=== PATIENT | male | born 1975 | race Caucasian/White ===

== ENCOUNTER 2017-03-04 22:51 | Emergency (ER) | payer OTHER ==
[2017-03-04 22:57] VITALS: RESP 16; TEMP 98.1
--- NOTE | 2017-03-04 23:05 | CPEKG ---
Heart Rate: 74 RR Interval: 811 P-R Interval: 192 QRSD Interval: 82 QT Interval: 384 QTC Interval: 426 P Emerson: 22 QRS Emerson: 19 T Wave Emerson: 40 EKG Severity - NORMAL ECG - EKG Impression: SINUS RHYTHM Electronically Signed By: Dmitri Faulkner 05-Mar-2017 07:19:49
[2017-03-04 23:25] LABS: % IMMATURE GRANULYOCYTES 0.2 % (0.0-1.1); ABSOLUTE IMMATURE GRANULOCYTES 0.02 10^3/uL (0.00-0.10); ADD DIFF? NO; ADD MORPH? NO; ADD SCAN? NO; ATYPICAL LYMPHOCYTE FLAG 0 (0-99); FRAGMENT RBC FLAG 0 (0-99); HEMATOCRIT 46.3 % (40.0-51.0); HEMOGLOBIN 16.7 g/dL (13.7-17.5); LEFT SHIFT FLG 0 (0-99); LIPEMIA HEMOLYSIS FLAG 90 (0-99); MEAN CELL HEMOGLOBIN 30.3 pg (27.9-34.1); MEAN CELL HEMOGLOBIN CONCENTR. 36.1 g/dL (32.4-36.7); MEAN CELL VOLUME 83.9 fL (81.5-99.8); MEAN PLATELET VOLUME 9.1 fL (8.7-11.7); PLATELET CLUMPS FLAG 0 (0-99); PLATELET COUNT 264 10^3/uL (150-400); RED BLOOD CELL COUNT 5.52 10^6/uL (4.40-6.38); RED CELL DISTRIBUTION WIDTH 11.6 % (11.5-15.2)
[2017-03-04 23:31] LABS: ANION GAP 12 mEq/L (8-16); CALCIUM 9.7 mg/dL (8.5-10.4); CARBON DIOXIDE 24 mEq/l (22-31); CHLORIDE 101 mEq/L (97-110); GLOMERULAR FILTRATION RATE > 60; GLUCOSE 139 mg/dL (70-100); POTASSIUM 4.1 mEq/L (3.5-5.2); SODIUM 137 mEq/L (134-144)
[2017-03-04 23:43] LABS: TROPONIN I < 0.012 ng/mL (0.000-0.034)
--- NOTE | 2017-03-05 00:09 | EDPHY ---
H & P Stated Complaint: Chest tightness and dizziness started 1700 Time Seen by Provider: 03/04/17 23:00 HPI/ROS: Chief Complaint: Chest tightness HPI: 42-year-old male was cooking dinner at 5 o'clock tonight when he felt a fluttering and some disease in his chest. He had short episodes lasting a seconds 4-4 times over the next hour and half. Then at 8 o'clock she will be he had central tightness in his chest with some fluttering in his upper abdomen. This lasted about 0.5 hr. He had some mild discomfort left side of his neck and the back of his arms. At worst is a 2/10. He has some intermittent moments of shortness of breath but were not persistent. Right now he is without complaint. He had a cold last week but has been well for the last 5-6 days. Does not have a history of similar episodes in the past. Does not smoke. Does not have a history of coronary artery disease. ROS: 10 point Review of Systems is negative except as noted in the HPI. PMH: Anxiety Social History: Past smoker, quit 3-4 years ago, no alcohol, no recreational drug use Family History: Both parents had breast cancer, no history of coronary artery disease stroke or diabetes Physical Exam: Gen: Awake, Alert, No Distress HEENT: Nose: no rhinorrhea Eyes: PERRLA, EOMI Mouth: Moist mucosa Neck: Supple, no JVD Chest: nontender, lungs clear to auscultation Heart: S1, S2 normal, no murmur Abd: Soft, non-tender, no guarding Back: no CVA tenderness, no midline tenderness Ext: no edema, non-tender Skin: no rash Neuro: CN II-XII intact, Sensation grossly intact, Strength 5/5 in bilateral upper and lower extremities - Personal History Current Tetanus Diphtheria and Acellular Pertussis (TDAP): Yes - Medical/Surgical History Hx Asthma: No Hx Chronic Respiratory Disease: No Hx Diabetes: No Hx Cardiac Disease: No Hx Renal Disease: No Hx Cirrhosis: No Hx Alcoholism: No Hx HIV/AIDS: No Hx Splenectomy or Spleen Trauma: No Other PMH: HTN, anxiety, depression, pre-diabetic, - Social History Smoking Status: Former smoker Constitutional: Initial Vital Signs Temperature (C) 36.7 C 03/04/17 22:54 Heart Rate 82 03/04/17 22:54 Respiratory Rate 16 03/04/17 22:54 Blood Pressure 182/109 H 03/04/17 22:54 O2 Sat (%) 97 03/04/17 22:54 O2 Delivery Mode Room Air Allergies/Adverse Reactions: No Known Allergies Allergy (Unverified 03/04/17 22:52) Home Medications: Medication Instructions Recorded Aspirin 81mg (*) 03/04/17 Buspar (*) 03/04/17 Prilosec 03/04/17 Wellbutrin Xl 03/04/17 traZODone 03/04/17 Medical Decision Making - Diagnostics EKG Interpretation: ECG time 06/21/2002, sinus rhythm with a rate of 74, normal axis, normal intervals, no acute ST or T-wave changes. Impression normal ECG. ED Course/Re-evaluation: 42-year-old male with no risk factors for coronary artery disease had chest tightness at 8 o'clock. Initial ECG is negative. Initial troponin is negative. Will repeat a 6 hr troponin at 2 in the morning. If negative patient to go home with outpatient follow-up. - Data Points Laboratory Results: Laboratory Results 03/04/17 22:54 03/04/17 22:54 03/04/17 03/04/17 22:54 22:54 WBC 8.79 10^3/uL 10^3/uL (3.80-9.50) RBC 5.52 10^6/uL 10^6/uL (4.40-6.38) Hgb 16.7 g/dL g/dL (13.7-17.5) Hct 46.3 % % (40.0-51.0) MCV 83.9 fL fL (81.5-99.8) MCH 30.3 pg pg (27.9-34.1) MCHC 36.1 g/dL g/dL (32.4-36.7) RDW 11.6 % % (11.5-15.2) Plt Count 264 10^3/uL 10^3/uL (150-400) MPV 9.1 fL fL (8.7-11.7) Neut % (Auto) 62.8 % % (39.3-74.2) Lymph % (Auto) 25.9 % % (15.0-45.0) [place] % (Auto) 8.4 % % (4.5-13.0) Eos % (Auto) 2.2 % % (0.6-7.6) Baso % (Auto) 0.5 % % (0.3-1.7) Nucleat RBC Rel Count 0.0 % % (0.0-0.2) Absolute Neuts (auto) 5.52 10^3/uL 10^3/uL (1.70-6.50) Absolute Lymphs (auto) 2.28 10^3/uL 10^3/uL (1.00-3.00) Absolute Monos (auto) 0.74 10^3/uL 10^3/uL (0.30-0.80) Absolute Eos (auto) 0.19 10^3/uL 10^3/uL (0.03-0.40) Absolute Basos (auto) 0.04 10^3/uL 10^3/uL (0.02-0.10) Absolute Nucleated RBC 0.00 10^3/uL 10^3/uL (0-0.01) Immature Gran % 0.2 % % (0.0-1.1) Immature Gran # 0.02 10^3/uL 10^3/uL (0.00-0.10) Sodium 137 mEq/L mEq/L (134-144) Potassium 4.1 mEq/L mEq/L (3.5-5.2) Chloride 101 mEq/L mEq/L (97-110) Carbon Dioxide 24 mEq/l mEq/l (22-31) Anion Gap 12 mEq/L mEq/L (8-16) BUN 14 mg/dL mg/dL (7-23) Creatinine 1.0 mg/dL mg/dL (0.7-1.3) Estimated GFR > 60 Glucose 139 mg/dL H mg/dL (70-100) Calcium 9.7 mg/dL mg/dL (8.5-10.4) Troponin I < 0.012 ng/mL ng/mL (0.000-0.034) Departure - Departure Disposition: Home, Routine, Self-Care Clinical Impression: Chest pain Condition: Good Instructions: Chest Pain (ED) Additional Instructions: Follow up with primary care physician in 2 days for further evaluation and to arrange for an outpatient stress test. Return to the emergency department for return of chest pain, shortness of breath , fevers, chills, cough, or any other concerns. Referrals: Pawan Valera MD [Primary Care Provider] - As per Instructions
[2017-03-05 03:06] VITALS: BP 161/110; PULSE 80; O2SAT 96
== END 2017-03-05 03:05 | disposition home or self-care (01) ==
DX: R07.9 Chest pain, unspecified (principal); I10 Essential (primary) hypertension; Z87.891 Personal history of nicotine dependence

== ENCOUNTER → 2017-10-27 | Outpatient (CLI) | payer OTHER | LOC: BMCIMAGING 15:25 | PROVIDERS: ATTEND Family Medicine | DX: Z13.828 Encounter for screening for other musculoskeletal disorder (principal) ==